=== PATIENT | male | born 2000 | race Hispanic/Latino ===

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

== ENCOUNTER 2021-12-21 17:50 | Emergency (ER) | payer SELFPAY ==
--- NOTE | 2021-12-21 19:58 | EDPHYS ---
Physician Documentation [facility] Name: Gamaliel Christopher Age: 21 yrs Sex: Male : 2000 Arrival Date: 12/21/2021 Time: 17:51 Bed 17 Private MD: ED Physician Kareen Devlin HPI: 12/21 19:50 This 21 yrs old Male presents to ER via Ambulatory with complaints of cp Abdominal Pain, body aches, Drug Treatment. 19:50 body aches. cp 19:50 Onset: The symptoms/episode began/occurred today. Patient reports history of opioid cp addiction and is attempting to quit taking percocet. Patient reports last taking them this morning, and is now having general body aches. Vomiting times 1 and 3 episodes of diarrhea today. Historical: - Allergies: 18:27 PENICILLINS; vg1 - Home Meds: 18:27 None [Active]; vg1 - PMHx: 18:25 None; vg1 - PSHx: 18:25 None; vg1 - Immunization history:: Client reports having NOT received the Covid vaccine. - Social history:: Smoking status: Reported history of juuling and/or vaping. Patient uses street drugs, marijuana, Percocet . ROS: 19:53 Eyes: Negative for injury, pain, redness, and discharge. cp 19:53 Constitutional: Positive for body aches, Negative for fever, poor PO intake. 19:53 Cardiovascular: Negative for chest pain. 19:53 Respiratory: Negative for cough, shortness of breath, wheezing. 19:53 Abdomen/GI: Positive for vomiting, diarrhea, Negative for abdominal pain, constipation. 19:53 Neuro: Negative for altered mental status, headache, syncope, weakness. 19:53 All other systems are negative. Exam: 19:54 Head/Face: Normocephalic, atraumatic. cp 19:54 Constitutional: The patient appears in no acute distress, alert, awake, non-diaphoretic, non-toxic, well developed, well nourished. 19:54 Eyes: Periorbital structures: appear normal, Conjunctiva: normal, no exudate, no injection, Lids and lashes: appear normal, bilaterally. 19:54 ENT: External ear(s): are unremarkable, Nose: is normal, Mouth: Lips: moist, Oral mucosa: moist, Posterior pharynx: Airway: no evidence of obstruction, patent. 19:54 Neck: ROM/movement: is normal, is supple, without pain, no range of motions limitations. 19:54 Chest/axilla: Inspection: normal. 19:54 Cardiovascular: Rate: normal, Rhythm: regular. 19:54 Respiratory: the patient does not display signs of respiratory distress, Respirations: normal, no use of accessory muscles, no retractions, labored breathing, is not present, Breath sounds: are clear throughout, no decreased breath sounds. 19:54 Abdomen/GI: Exam negative for discomfort, distension, guarding, Inspection: abdomen appears normal. 19:54 Back: pain, is absent, ROM is normal. 19:54 Neuro: Orientation: is normal, Mentation: is normal, Motor: moves all fours, strength is normal, Gait: is steady, at a normal pace, without difficulty. 19:54 Psych: Behavior/mood is pleasant, Affect is calm, Patient has no thoughts/intents to harm self or others. Judgement / Insight is normal. Delusions/hallucinations are not present. Vital Signs: 18:21 BP 117 / 85; Pulse 65; Resp 16; Temp 97.7; Pulse Ox 98% on R/A; Weight 58.97 kg; Height vg1 5 ft. 6 in. (167.64 cm); Pain 2/10; 18:21 Body Mass Index 20.98 (58.97 kg, 167.64 cm) vg1 MDM: 19:50 Patient medically screened. cp 19:56 Data reviewed: vital signs, nurses notes, and as a result, I will discharge patient. cp Administered Medications: No medications were administered Disposition Summary: 12/21/21 19:57 Discharge Ordered Location: Home cp Problem: new cp Symptoms: are unchanged cp Condition: Stable cp Diagnosis - Opioid dependence, uncomplicated cp Followup: cp - With: Private Physician - When: 1 - 2 days - Reason: Recheck today's complaints Discharge Instructions: - Discharge Summary Sheet cp - Opioid Use Disorder cp - Warning Signs of Opioid Misuse cp Forms: - Medication Reconciliation Form cp - Thank You Letter cp - Antibiotic Education cp - Prescription Opioid Use cp Signatures: Bertrand Scanlon PA PA cp Garcia, Victoria, RN RN vg1 Corrections: (The following items were deleted from the chart) 18:28 18:25 Allergies: No Known Allergies; vg1 vg1
--- NOTE | 2021-12-21 19:58 | ER ---
Nurse's Notes [facility] Name: Gamaliel Christopher Age: 21 yrs Sex: Male : 2000 Arrival Date: 12/21/2021 Time: 17:51 Bed 17 Private MD: Diagnosis: Opioid dependence, uncomplicated Presentation: 12/21 18:21 Chief complaint: Patient states: "Im having withdraws from Opioids" Pt states is taking vg1 "percs" stated "Mona been trying to stop but I just cant take the pain so I keep taking them" Stated last dose was about two hours ago. Also reports NVD. Coronavirus screen: Vaccine status: Patient reports being unvaccinated. Client denies travel out of the [place] in the last 14 days. Ebola Screen: Patient denies exposure to infectious person. Patient denies travel to an Ebola-affected area in the 21 days before illness onset. Initial Sepsis Screen: Does the patient meet any 2 criteria? No. Patient's initial sepsis screen is negative. Does the patient have a suspected source of infection? No. Patient's initial sepsis screen is negative. Risk Assessment: Do you want to hurt yourself or someone else? Patient reports no desire to harm self or others. Onset of symptoms was December 21, 2021. 18:21 Method Of Arrival: Ambulatory 1 18:21 Acuity: GENTRY 3 vg1 Triage Assessment: 18:25 General: Appears uncomfortable, Behavior is anxious. Pain: Complains of pain in vg1 generalize body Pain currently is 2 out of 10 on a pain scale. GI: Reports diarrhea, nausea, vomiting. Historical: - Allergies: 18:27 PENICILLINS; vg1 - Home Meds: 18:27 None [Active]; vg1 - PMHx: 18:25 None; vg1 - PSHx: 18:25 None; vg1 - Immunization history:: Client reports having NOT received the Covid vaccine. - Social history:: Smoking status: Reported history of juuling and/or vaping. Patient uses street drugs, marijuana, Percocet . Vital Signs: 18:21 BP 117 / 85; Pulse 65; Resp 16; Temp 97.7; Pulse Ox 98% on R/A; Weight 58.97 kg; Height vg1 5 ft. 6 in. (167.64 cm); Pain 2/10; 18:21 Body Mass Index 20.98 (58.97 kg, 167.64 cm) vg1 ED Course: 17:51 Patient arrived in ED. mr 18:01 Bertrand Scanlon PA is PHCP. cp 18:01 Kareen Devlin MD is Attending Physician. cp 18:25 Triage completed. vg1 18:25 Arm band placed on. vg1 20:02 Merced Castellano, RN is Primary Nurse. ke1 Administered Medications: No medications were administered Outcome: 19:57 Discharge ordered by . cp 20:02 Discharged to [facility] 20:05 Patient left the ED. lp1 Signatures: Sonia Sheriff mr GuillermoMary, RN RN lp1 Bertrand Scanlon PA PA Yuki Telles, RN RN 1 Merced Castellano, DIONNA RN [facility] Corrections: (The following items were deleted from the chart) 18:28 18:25 Allergies: No Known Allergies; 1 vg1
[2021-12-21 20:10] VITALS: BP 117/85; TEMP 97.7; O2SAT 98
== END 2021-12-21 20:05 | disposition home or self-care (01) ==
LOC: ER 17:50
DX: F11.20 Opioid dependence, uncomplicated (principal); Z88.0 Allergy status to penicillin; F12.10 Cannabis abuse, uncomplicated; F17.290 Nicotine dependence, other tobacco product, uncomplicated
CPT/HCPCS: 99281